=== PATIENT | male | born 1970 | race Two or more races ===

== ENCOUNTER 2016-10-09 06:05 | Inpatient (IN) | payer SELFPAY ==
[~2016-10-09] VITALS: Ht 170.2 cm; Wt 83.5 kg
[2016-10-09 07:13] LABS: ALBUMIN 3.8 g/dL (3.4-5.0); ALKALINE PHOSPHATASE 74 U/L (46-116); ALT/SGPT 30 U/L (16-63); AMYLASE 86 U/L (25-115); AST/SGOT 17 U/L (15-37); BILIRUBIN TOTAL 0.4 mg/dL (0.20-1.00); CALCIUM 8.8 mg/dL (8.5-10.1); CARBON DIOXIDE 23.8 mmol/L (21-32); CHLORIDE SERUM 103 mmol/L (98-107); CREATININE SERUM 0.9 mg/dL (0.7-1.3); GFR1 > 60 mL/min; GLUCOSE SERUM 128 mg/dL (74-106); LIPASE 185 IU/L (73-393); POTASSIUM SERUM 3.5 mmol/L (3.5-5.1); SODIUM SERUM 140 mmol/L (136-145); TOTAL PROTEIN, SERUM 7.4 g/dL (6.4-8.2)
[2016-10-09 07:24] LABS: PLATELET COUNT 230 x10^3mcL (130-400); RED CELL DISTRIBUTION WIDTH 12.9 % (11.5-14.5)
[2016-10-09 07:36] LABS: BASOPHIL % 0 % (0-2)
[2016-10-09 08:19] LABS: UA SPECIFIC GRAVITY 1.015 (1.005-1.035); microscopic required? YES; urine erythrocyte NEGATIVE (NEGATIVE)
[2016-10-09 10:13] LABS: AMPHETAMINE QUAL UR NONE DETECTED (NEG <=1000)
[2016-10-09 10:17] VITALS: BP 108/61
[2016-10-09 10:17] LABS: CHOLESTEROL/HDL RATIO 4.6; MAGNESIUM 1.6 mg/dL (1.8-2.4); PHOSPHOROUS 2.1 mg/dL (2.5-4.9)
[2016-10-09 10:24] LABS: T3 TOTAL 1.03 ng/mL
[2016-10-09 10:29] VITALS: BP 108/61
[2016-10-09 11:21] LABS: FREE T4 1.01 ng/dL (0.76-1.46); FREE THYROXINE INDEX 2.3 ug/dL (1.4-4.5); T4(THYROXINE) 6.9 ug/dL (4.7-13.3)
[2016-10-09 15:22] VITALS: BP 101/57
[2016-10-09 15:29] VITALS: BP 100/57
[2016-10-09 16:45] VITALS: BP 106/61
[2016-10-09 18:53] VITALS: BP 101/60
[2016-10-10 06:03] VITALS: BP 104/61
[2016-10-10 06:04] LABS: ALBUMIN 3.2 g/dL (3.4-5.0); CALCIUM 8.3 mg/dL (8.5-10.1); CARBON DIOXIDE 26.8 mmol/L (21-32); CHLORIDE SERUM 106 mmol/L (98-107); CREATININE SERUM 0.9 mg/dL (0.7-1.3); GFR1 > 60 mL/min; GLUCOSE SERUM 118 mg/dL (74-106); MAGNESIUM 2.2 mg/dL (1.8-2.4); PHOSPHOROUS 3.7 mg/dL (2.5-4.9); POTASSIUM SERUM 3.9 mmol/L (3.5-5.1); SODIUM SERUM 141 mmol/L (136-145)
[2016-10-10 06:16] LABS: BASOPHIL % 0.2 % (0-2); PLATELET COUNT 220 x10^3mcL (130-400)
[2016-10-10 08:50] VITALS: BP 102/63
[2016-10-10 09:58] VITALS: BP 104/61
[2016-10-10 13:00] VITALS: BP 105/64
[2016-10-10] MEDS ORDERED: APAP/HYDROCODON1 T13 PO ×2 (14:37→14:44)
[2016-10-10] MEDS ORDERED: COL250 PO (14:38)
== END 2016-10-10 15:35 | disposition home or self-care (01) | DRG 341 ==
LOC: ED 06:05 → DU 09:08 → MU 09:08 → DU 20:09
PROVIDERS: Emergency Medicine; Surgery; ADMIT Family Medicine
PROC: 0DTJ4ZZ Resection of Appendix, Percutaneous Endoscopic Approach (ICD-10-PCS; principal; 2016-10-09 12:00)
DX: K35.80 Unspecified acute appendicitis (principal); N17.0 Acute kidney failure with tubular necrosis; E44.1 Mild protein-calorie malnutrition; K80.20 Calculus of gallbladder without cholecystitis without obstruction; E83.39 Other disorders of phosphorus metabolism; E83.42 Hypomagnesemia; Z68.28 Body mass index [BMI] 28.0-28.9, adult
CPT/HCPCS: 80307; 83880; 84439; 94150; G0480; J0330; J0690; J0694; J1170; J1885; J1956; J2175; J2250; J2405; J2704; J3010; J3475; J3490; J7030; J7120; Q0092; Q9967